=== PATIENT | female | born 1975 | race Asian ===

== ENCOUNTER 2020-10-01 23:56 | Emergency (ER) | payer OTHER ==
[2020-10-02 00:16] VITALS: BP 130/79; PULSE 89; TEMP 97.6; BMI 26.6
== END 2020-10-02 02:38 | disposition home or self-care (01) ==
LOC: JER 23:56
DX: M25.572 Pain in left ankle and joints of left foot (principal)
CPT/HCPCS: 73610-TC-LT-FY; 99283-25